=== PATIENT | female | born 1955 | race Caucasian/White ===

== ENCOUNTER 2025-02-14 12:05 | Emergency (ER) | payer MEDICARE, OTHER ==
[~2025-02-14] VITALS: Ht 160 cm; Wt 58.5 kg
[2025-02-14] MEDS ORDERED: COLCHICINE0.6 M1 PO (13:42)
[2025-02-14 13:55] VITALS: BP 137/77
== END 2025-02-14 13:55 | disposition home or self-care (01) ==
LOC: ED 12:05
DX: M10.9 Gout, unspecified (principal)
CPT/HCPCS: 73630; 99283